=== PATIENT | female | born 1955 | race African-American/Black ===

== ENCOUNTER 2017-04-14 18:31 | Emergency (ER) | payer OTHER ==
[~2017-04-14] VITALS: Ht 165.1 cm; Wt 109.3 kg
[~2017-04-14 18:31] MED LIST: AMLODIPINE BESYL5 MG PO; COUMADIN2.5 MG PO; Ecotrin PO; Effient PO; FEOSOL325 MG PO; HYDROCHLOROTHIA25 MG PO; Hydrodiuril,Oretic,E PO; LO-DOSE ASPIRIN81 M1 PO; METOPROLOL TART50 MG PO; PERCOCET 5/31 TABLET PO; PLAVIX75 MG; PLAVIX75 MG PO; Pravachol PO; Toprol XL PO; VISTARIL25 MG PO; ZETIA10 MG PO; ZOCOR20 MG PO; ZOFRAN4 MG PO; Zestril,Prinivil PO
[2017-04-14] MEDS ORDERED: PERIDEX1 ML MM (19:15)
[2017-04-14] MEDS ORDERED: CLEOCIN300 MG PO (19:15)
[2017-04-14] MEDS ORDERED: MOTRIN800 MG PO (19:15)
[2017-04-14] MEDS ORDERED: PERCOCET 5/31 TABLET PO (19:15)
[2017-04-14 20:07] VITALS: BP 177/87
== END 2017-04-14 20:07 | disposition home or self-care (01) ==
LOC: EME 18:31
PROC: 3E0T3BZ Introduction of Anesthetic Agent into Peripheral Nerves and Plexi, Percutaneous Approach (ICD-10-PCS; principal; 2017-04-14)
DX: K04.7 Periapical abscess without sinus (principal); E78.5 Hyperlipidemia, unspecified; I10 Essential (primary) hypertension; Z98.61 Coronary angioplasty status; F17.200 Nicotine dependence, unspecified, uncomplicated
CPT/HCPCS: 99281; 99283